=== PATIENT | female | born 1975 | race Caucasian/White ===

== ENCOUNTER 2016-07-19 14:45 | Outpatient (RCR) | payer OTHER | END 2016-09-09 08:00 | disposition home or self-care (01) | LOC: PT 14:45 | DX: Z47.89 Encounter for other orthopedic aftercare (principal) ==

== ENCOUNTER 2017-06-03 08:00 | Outpatient (RCR) | payer OTHER | END 2017-08-09 | LOC: OT | DX: S69.82XD Other specified injuries of left wrist, hand and finger(s), subsequent encounter (principal); X58.XXXD Exposure to other specified factors, subsequent encounter ==

== ENCOUNTER → 2020-08-15 | Outpatient (REF) | LOC: LAB 10:43 | DX: Z01.818 Encounter for other preprocedural examination (principal); N39.0 Urinary tract infection, site not specified ==

== ENCOUNTER 2020-08-25 13:06 | Outpatient (RCR) | payer OTHER | END 2020-10-10 16:30 | disposition home or self-care (01) | LOC: PT 13:06 | DX: Z96.651 Presence of right artificial knee joint (principal) ==

== ENCOUNTER → 2023-08-22 | Outpatient (CLI) | payer OTHER ==
[2023-08-22 10:18] LABS: URINE APPEARANCE CLEAR (CLEAR); URINE BILIRUBIN NEGATIVE (NEGATIVE); URINE BLOOD NEGATIVE (NEGATIVE); URINE COLOR YELLOW (YELLOW); URINE GLUCOSE NEGATIVE (NEGATIVE); URINE KETONE NEGATIVE (NEGATIVE); URINE LEUKOCYTE ESTERASE NEGATIVE (NEGATIVE); URINE NITRATE NEGATIVE (NEGATIVE); URINE PROTEIN(semi-quant) NEGATIVE (NEGATIVE)
[2023-08-22 10:19] LABS: URINE WBC 0-1 /hpf (0-3)
== END ==
LOC: LAB 09:56
PROVIDERS: Orthopaedic Surgery
DX: R82.90 Unspecified abnormal findings in urine (principal)

== ENCOUNTER 2023-08-29 09:02 | Outpatient (RCR) | payer OTHER | END 2023-08-31 | disposition home or self-care (01) | LOC: PT | DX: M17.12 Unilateral primary osteoarthritis, left knee (principal); Z96.652 Presence of left artificial knee joint ==

== ENCOUNTER 2023-09-01 08:00 | Outpatient (RCR) | payer OTHER | END 2023-09-29 | disposition home or self-care (01) | LOC: PT | DX: M17.12 Unilateral primary osteoarthritis, left knee (principal); Z96.652 Presence of left artificial knee joint ==

== ENCOUNTER → 2024-07-20 | Outpatient (CLI) | payer OTHER | LOC: LAB 10:32 | DX: R30.0 Dysuria (principal) ==